=== PATIENT | female | born 2000 | race Caucasian/White ===

== ENCOUNTER 2023-11-25 12:11 | Outpatient (OUT) | payer OTHER, SELFPAY ==
--- NOTE | 2023-11-25 12:19 | XR_ITS ---
The [address] [address] Patient Name: TIMO BLACKBURN MRN: [id number] date: 2000 Sex: F Assigned Patient Location: RAD Current Patient Location: RAD Accession/Order Number: [id number] Exam Date: 11/25/2023 12:25 Report Date: 11/25/2023 12:38 At the request of: MARY GRACE NUÑEZ Procedure: XR chest 2V EXAM: XR chest 2V HISTORY: cough R05.9 for 2 weeks COMPARISON: None. TECHNIQUE: Upright PA and lateral chest x-ray FINDINGS: The heart is not enlarged and the vasculature is not distended. No acute infiltrate, effusion or pneumothorax is identified. The osseous structures are grossly intact. XR/XR chest 2V IMPRESSION: No acute infiltrate or evidence of cardiac decompensation. Direct comparison with a previous study would be helpful in determining the chronicity of these findings. Electronically authenticated by: SANDER CASANOVA Date: 11/25/2023 12:38
== END 2023-11-25 12:12 | disposition home or self-care (01) ==
LOC: RAD 12:14
PROVIDERS: PCP Family Medicine; Visit Provider Family Medicine
DX: R05.9 Cough, unspecified (principal)
CPT/HCPCS: 71046

== ENCOUNTER 2024-01-13 10:34 | Outpatient (RCR) | payer OTHER, SELFPAY | END 2024-01-29 13:30 | disposition home or self-care (01) | LOC: PT 10:34 | PROVIDERS: PCP Family Medicine; Visit Provider Family Medicine | DX: R42 Dizziness and giddiness (principal) | CPT/HCPCS: 97110; 97140; 97161 ==

== ENCOUNTER 2024-02-05 09:57 | Outpatient (REF) | payer OTHER, SELFPAY ==
--- OUTSIDE RECORDS SUMMARY | 2024-02-05 10:15 | XMS_ITS | CCD ---
Author Organization [facility] Care Team Providers Care Telephone Clerk Telegraph Office Name Role Phone SAVANNAH ., DR BRODY Attending Unavailable HOY ., DR BRODY Admitting Unavailable HOY ., DR BRODY Attending Unavailable HOY ., DR BRODY Admitting Unavailable HOY ., DR BRODY Consulting Unavailable Community, Outreach Attending Provider NO FAMILY, PHYSICIAN Primary Care Provider Unava ilable Community, Outreach Attending Unavailable Community, Outreach Admitting Unavailable NO FAMILY, PHYSICIAN Primary Care Unavailable Allergies Allergy Classification Reported Allergen(s) Allergy Type Date of Onset Reaction(s) Facility (2 sources) Amoxicillin; Translations: [amoxicillin] Drug Allergy 07-14-2021 [facility] (2 sources) cefdinir; Translations: [cefdinir] Drug Allergy 07-14-2021 [facility] Problems Problem Classification Problem Date Documented Da te Episodic/Chronic Other upper respiratory infections (4 sources) Acute pharyngitis, unspecified; Translations: [ACUTE PHARYNGITIS UNSPECIFIED] Onset: 01-07-2023 Episodic Results Test Name Value Interpretation Reference Range Facility Alanine aminotransferase [En zymatic activity/volume] in Serum or PlasmaOrdered By: OUTREACH COMMUNITY on 12-26-2023 ALT [Catalytic activity/Vol] 18 U/L 7-52 [facility] Albumin [Mass/volume] in Ser um or Plasma by Bromocresol green (BCG) dye binding methoOrdered By: OUTREACH COMMUNITY on 12-26-2023 Albumin BCG dye [Mass/Vol] 4.9 g/dL 3.5-5.7 [facility] Alkaline phosphatase [Enzyma tic activity/volume] in Serum or PlasmaOrdered By: OUTREACH COMMUNITY on 12-26-2023 ALP [Catalytic activity/Vol] 58 U/L 34-104 [facility] Aspartate aminotransferase [ Enzymatic activity/volume] in Serum or PlasmaOrdered By: OUTREACH COMMUNITY on 12-26-2023 AST [Catalytic activity/Vol] 14 U/L 13-39 [facility] Bilirubin.total [Mass/volume ] in Serum or PlasmaOrdered By: OUTREACH COMMUNITY on 12-26-2023 Bilirubin [Mass/Vol] 1.0 mg/dL 0.3-1.0 [facility] CBC Without Differentialon 0 12-26-2023 Erythrocyte distribution width (RBC) [Ratio] 14.0 % Normal 11.9-15.3 [facility] Comment on above: Performed By: #### O UTREACH CMP, CBCNOOUTREACH, OUTREACH LIPID, OUTREACH TSH #### [facility] [address] [place] [address] Hematocrit (Bld) [Volume fraction] 46.5 % High 34.0-46.4 [facility] Comment on above: Performed By: #### O UTREACH CMP, CBCNOOUTREACH, OUTREACH LIPID, OUTREACH TSH #### [facility] [address] [place] [address] Hemoglobin (Bld) [Mass/Vol] 16.0 g/dL High 11.8-15.4 [facility] Comment on above: Performed By: #### O UTREACH CMP, CBCNOOUTREACH, OUTREACH LIPID, OUTREACH TSH #### [facility] [address] [place] [address] MCH (RBC) [Entitic mass] 30.6 pg Normal 24.7-34.3 [facility] Comment on above: Performed By: #### O UTREACH CMP, CBCNOOUTREACH, OUTREACH LIPID, OUTREACH TSH #### [facility] [address] [place] [address] MCV (RBC) [Entitic vol] 89.1 fL Normal 80-100 [facility] Comment on above: Performed By: #### O UTREACH CMP, CBCNOOUTREACH, OUTREACH LIPID, OUTREACH TSH #### [facility] [address] [place] [address] Mean Corpuscular HGB Conc 34.4 g/dL Normal 32.0-35.0 [facility] Comment on above: Performed By: #### O UTREACH CMP, CBCNOOUTREACH, OUTREACH LIPID, OUTREACH TSH #### [facility] [address] [place] [address] Platelet mean volume (Bld) [Entitic vol] 8.6 fL Normal 6.3-10.7 [facility] Comment on above: Result Comment: PERF ORMED BY: [place] [address] PATHOLOGIST VEHICLE DYNAMICS ENGINEER JAMARCUS DOUGLAS M.D. Performed By: #### O UTREACH CMP, CBCNOOUTREACH, OUTREACH LIPID, OUTREACH TSH #### [address] Platelets (Bld) [#/Vol] 343 10*3/uL Normal 150-450 [facility] Comment on above: Performed By: #### O UTREACH CMP, CBCNOOUTREACH, OUTREACH LIPID, OUTREACH TSH #### [address] RBC (Bld) [#/Vol] 5.22 10*6/uL High 3.60-5.00 [facility] Comment on above: Performed By: #### O UTREACH CMP, CBCNOOUTREACH, OUTREACH LIPID, OUTREACH TSH #### [address] WBC (Bld) [#/Vol] 10.2 10*3/uL Normal 3.8-11.6 [facility] Comment on above: Performed By: #### O UTREACH CMP, CBCNOOUTREACH, OUTREACH LIPID, OUTREACH TSH #### [facility] [address] [place] [address] [place] CMP Outreachon 12-26-2023 Albumin [Mass/Vol] 4.9 g/dL Normal 3.5-5.7 [facility] Comment on above: Performed By: #### O UTREACH CMP, CBCNOOUTREACH, OUTREACH LIPID, OUTREACH TSH #### [address] ALP [Catalytic activity/Vol] 58 U/L Normal 34-104 [facility] Comment on above: Performed By: #### O UTREACH CMP, CBCNOOUTREACH, OUTREACH LIPID, OUTREACH TSH #### [facility] [address] [place] [address] [place] ALT [Catalytic activity/Vol] 18 U/L Normal 7-52 [facility] Comment on above: Performed By: #### O UTREACH CMP, CBCNOOUTREACH, OUTREACH LIPID, OUTREACH TSH #### [facility] [address] [place] [address] Anion gap [Moles/Vol] 12.8 mmol/L Normal 6.0-15.0 [facility] Comment on above: Performed By: #### O UTREACH CMP, CBCNOOUTREACH, OUTREACH LIPID, OUTREACH TSH #### [facility] [address] [place] [address] [place] AST [Catalytic activity/Vol] 14 U/L Normal 13-39 [facility] Comment on above: Performed By: #### O UTREACH CMP, CBCNOOUTREACH, OUTREACH LIPID, OUTREACH TSH #### [facility] [address] [place] [address] [place] Bilirubin [Mass/Vol] 1.0 mg/dL Normal 0.3-1.0 [facility] Comment on above: Performed By: #### O UTREACH CMP, CBCNOOUTREACH, OUTREACH LIPID, OUTREACH TSH #### [facility] [address] [place] [address] [place] Calcium [Mass/Vol] 10.3 mg/dL Normal 8.6-10.3 [facility] Comment on above: Performed By: #### O UTREACH CMP, CBCNOOUTREACH, OUTREACH LIPID, OUTREACH TSH #### [facility] [address] [place] [address] [place] Chloride [Moles/Vol] 105 mmol/L Normal 98-107 [facility] Comment on above: Performed By: #### O UTREACH CMP, CBCNOOUTREACH, OUTREACH LIPID, OUTREACH TSH #### [facility] [address] [place] [address] [place] CO2 [Moles/Vol] 28.0 mmol/L Normal 21.0-31.0 [facility] Comment on above: Performed By: #### O UTREACH CMP, CBCNOOUTREACH, OUTREACH LIPID, OUTREACH TSH #### [facility] [address] [place] [id number] [place] Creatinine [Mass/Vol] 0.73 mg/dL Normal 0.60-1.20 [facility] Comment on above: Performed By: #### O UTREACH CMP, CBCNOOUTREACH, OUTREACH LIPID, OUTREACH TSH #### [facility] [address] [place] [address] [place] GFR/1.73 sq M.predicted MDRD (S/P/Bld) [Vol rate/Area] mL/min/{1.73_m2} Normal [facility] Comment on above: Performed By: #### O UTREACH CMP, CBCNOOUTREACH, OUTREACH LIPID, OUTREACH TSH #### [place] [address] [place] Glucose [Mass/Vol] 94 mg/dL Normal 70-100 [facility] Comment on above: Result Comment: [facility] Glucose Reference Range is dependent on time and content of last meal. Glucose of more than 200 mg/dL in a nonstressed, ambulatory subject supports the diagnosis of Diabetes Mellitus. ADA recommended reference range Performed By: #### O UTREACH CMP, CBCNOOUTREACH, OUTREACH LIPID, OUTREACH TSH #### [place] [address] [place] Potassium [Moles/Vol] 3.8 mmol/L Normal 3.5-5.1 [facility] Comment on above: Performed By: #### O UTREACH CMP, CBCNOOUTREACH, OUTREACH LIPID, OUTREACH TSH #### [place] [id number] [place] Protein [Mass/Vol] 7.6 g/dL Normal 6.4-8.9 [facility] Comment on above: Performed By: #### O UTREACH CMP, CBCNOOUTREACH, OUTREACH LIPID, OUTREACH TSH #### [address] [address] [place] Sodium [Moles/Vol] 142 mmol/L Normal 136-145 [facility] Comment on above: Performed By: #### O CALI CMP, CBCNOOUTREACH, OUTREACH LIPID, OUTREACH TSH #### [facility] [address] [place] [phone] [place] Urea nitrogen [Mass/Vol] 7 mg/dL Normal 7-25 [facility] Comment on above: Performed By: #### O UTRDIRK CMP, CBCNOOUTREACH, OUTREACH LIPID, OUTREACH TSH #### [facility] [address] [place] [phone] [place] Calcium [Mass/volume] in Ser um or PlasmaOrdered By: OUTREACH COMMUNITY on 12-26-2023 Calcium [Mass/Vol] 10.3 mg/dL 8.6-10.3 [facility] Carbon dioxide, total [Moles /volume] in Serum or PlasmaOrdered By: OUTREACH COMMUNITY on 12-26-2023 CO2 [Moles/Vol] 28.0 mmol/L 21.0-31.0 [facility] Chloride [Moles/volume] in S pelon or PlasmaOrdered By: OUTREACH COMMUNITY on 12-26-2023 Chloride [Moles/Vol] 105 mmol/L 98-107 [facility] Cholesterol [Mass/volume] in Serum or PlasmaOrdered By: OUTREACH COMMUNITY on 12-26-2023 Cholesterol [Mass/Vol] 181 mg/dL 140-200 [facility] Comment on above: Chol less than 200 m g/dl low riskChol 201-239 mg/dl borderline riskChol 240 mg/dl and greater high risk Cholesterol in LDL Calc [Mas s/Vol]Ordered By: OUTREACH COMMUNITY on 12-26-2023 Cholesterol in LDL [Mass/Vol] 111 mg/dL 0-100 [facility] Comment on above: LDL ATP III CLASSIFI CATIONLDL less than 100 mg/dL OptimalLDL 100-129 mg/dL Near or above optimalLDL 130-159 mg/dL Borderline highLDL 160-189 mg/dL HighLDL greater than 189 mg/dL Very high Cholesterol in VLDL Calc [Ma ss/Vol]Ordered By: OUTREACH COMMUNITY on 12-26-2023 Cholesterol in VLDL [Mass/Vol] 19 mg/dL [facility] Creatinine [Mass/volume] in Serum or PlasmaOrdered By: [facility] on 12-26-2023 Creatinine [Mass/Vol] 0.73 mg/dL 0.60-1.20 [facility] Erythrocyte distribution wid th Auto (RBC) [Ratio]Ordered By: [facility] on 12-26-2023 Erythrocyte distribution width (RBC) [Ratio] 14.0 % 11.9-15.3 [facility] Glucose [Mass/volume] in Ser um or PlasmaOrdered By: [facility] on 12-26-2023 Glucose [Mass/Vol] 94 mg/dL 70-100 [facility] Comment on above: ADA recommended refe rence rangeRandom Glucose Reference Range is dependent on time and content of last meal. Glucose of more than 200 mg/dL in a nonstressed, ambulatory subject supports the diagnosis of Diabetes Mellitus. Hematocrit Auto (Bld) [Volum e fraction]Ordered By: [facility] on 12-26-2023 Hematocrit (Bld) [Volume fraction] 46.5 % 34.0-46.4 [facility] Hemoglobin [Mass/volume] in BloodOrdered By: [facility] on 12-26-2023 Hemoglobin (Bld) [Mass/Vol] 16.0 g/dL 11.8-15.4 [facility] Leukocytes [#/volume] correc caleb for nucleated erythrocytes in Blood by Automated counOrdered By: [facility] on 12-26-2023 WBC corrected for nucl RBC Auto (Bld) [#/Vol] 10.2 10*3/uL 3.8-11.6 [facility] Lipid Profile Outreach Cholesterol [Mass/Vol] 181 mg/dL Normal 140-200 [facility] Comment on above: Result Comment: Chol less than 200 mg/dl low risk Chol 201-239 mg/dl borderline risk Chol 240 mg/dl and greater high risk Performed By: #### O UTRHARRIS CMP, CBCNOOUTREACH, OUTREACH LIPID, OUTREACH TSH #### [facility] [address] Cholesterol in HDL [Mass/Vol] 51 mg/dL Normal 23-92 [facility] Comment on above: Result Comment: HDL CHOL ATP-III CLASSIFICATION Cardiovascular Risk HDL > or equal to 60 mg/dL LOW HDL < 40 mg/dL HIGH Performed By: #### O CALI HERNANDEZ, CBCNOOUTREACH, OUTREACH LIPID, OUTREACH TSH #### [facility] [address] Cholesterol.total/Choles terol in HDL [Mass ratio] 3.5 {ratio} Normal <5.0 [facility] Comment on above: Performed By: #### O CALI HERNANDEZ, CBCNOOUTREACH, OUTREACH LIPID, OUTREACH TSH #### [facility] [address] LDL Cholesterol,Calculated 111 mg/dL High 0-100 [facility] Comment on above: Result Comment: LDL ATP III CLASSIFICATION LDL less than 100 mg/dL Optimal LDL 100-129 mg/dL Near or above optimal LDL 130-159 mg/dL Borderline high LDL 160-189 mg/dL High LDL greater than 189 mg/dL Very high Performed By: #### O CALI HERNANDEZ, CBCNOOUTREACH, OUTREACH LIPID, OUTREACH TSH #### [facility] [address] Triglyceride w/Reflex 97 mg/dL Normal 0-149 [facility] Comment on above: Result Comment: TRIG ATP III CLASSIFICATION TRIG less than 150 mg/dL Normal TRIG 150-199 mg/dL Borderline high TRIG 200-500 mg/dL High TRIG greater than 500 mg/dL Very high Standard traceable to the Center for Disease Conrtrol and Prevention (CDC) test method. Performed By: #### O CALI HERNANDEZ, CBCNOOUTREACH, OUTREACH LIPID, OUTREACH TSH #### [facility] [address] VLDL CHOLESTEROL 19 mg/dL Normal [facility] Comment on above: Performed By: #### O CALI HERNANDEZ, CBCNOOUTREACH, OUTREACH LIPID, OUTREACH TSH #### [facility] [address] [place] [id number] [facility] MCH Auto (RBC) [Entitic mass ]Ordered By: OUTREACH [facility] on 12-26-2023 MCH (RBC) [Entitic mass] 30.6 pg 24.7-34.3 [facility] MCHC Auto (RBC) [Mass/Vol]Or dered By: OUTREACH [facility] on 12-26-2023 MCHC (RBC) [Mass/Vol] 34.4 g/dL 32.0-35.0 [facility] MCV Auto (RBC) [Entitic vol] Ordered By: OUTREACH [facility] on 12-26-2023 MCV (RBC) [Entitic vol] 89.1 fL 80-100 [facility] No Panel InformationOrdered By: OUTREACH [facility] on 12-26-2023 Estimated GFR (CKD-EPI) > 60.0 mL/Min [facility] Creatinine Clearance (Chem N/A [facility] Platelet mean volume Auto (B ld) [Entitic vol]Ordered By: [facility] on 12-26-2023 Platelet mean volume (Bld) [Entitic vol] 8.6 fL 6.3-10.7 [facility] Platelets Auto (Bld) [#/Vol] Ordered By: OUTREACH [facility] on 12-26-2023 Platelets (Bld) [#/Vol] 343 10*3/uL 150-450 [facility] Potassium [Moles/volume] in Serum or PlasmaOrdered By: OUTREACH [facility] on 12-26-2023 Potassium [Moles/Vol] 3.8 mmol/L 3.5-5.1 [facility] Protein [Mass/volume] in Ser um or PlasmaOrdered By: OUTREACH [facility] on 12-26-2023 Protein [Mass/Vol] 7.6 g/dL 6.4-8.9 [facility] RBC Auto (Bld) [#/Vol]Ordere d By: OUTREACH [facility] on 12-26-2023 RBC (Bld) [#/Vol] 5.22 10*6/uL 3.60-5.00 [facility] Serum or plasma anion gap de terminationOrdered By: OUTREACH [facility] on 12-26-2023 Anion gap [Moles/Vol] 12.8 mmol/L 6.0-15.0 [facility] Serum or plasma high density lipoprotein (HDL) cholesterol measurementOrdered By: OUTREACH [facility] on 12-26-2023 Cholesterol in HDL [Mass/Vol] 51 mg/dL 23-92 [facility] Comment on above: HDL CHOL ATP-III CLA SSIFICATION Cardiovascular RiskHDL > or equal to 60 mg/dL LOWHDL < 40 mg/dL HIGH Serum or plasma total choles terol/high density lipoprotein (HDL) cholesterol mass ratOrdered By: [facility] on 12-26-2023 Cholesterol.total/Choles terol in HDL [Mass ratio] 3.5 {ratio} <5.0 [facility] Sodium [Moles/volume] in Ser um or PlasmaOrdered By: OUTREACH COMMUNITY on 12-26-2023 Sodium [Moles/Vol] 142 mmol/L 136-145 [facility] Thyroid Stimulating Hormoneo n 12-26-2023 TSH Qn 1.05 m[IU]/L Normal 0.45-5.33 [facility] Comment on above: Result Comment: PERF ORMED BY: [facility] [address] [place] [address] PATHOLOGIST VEHICLE DYNAMICS ENGINEER JAMARCUS DOUGLAS M.D. Performed By: #### O [facility] CMP, CBCNOOUTREACH, [facility] LIPID, OUTREACH TSH #### [facility] [address] Thyrotropin [Units/volume] i n Serum or PlasmaOrdered By: [facility] on 12-26-2023 TSH Qn 1.05 m[IU]/L 0.45-5.33 [facility] Triglyceride [Mass/volume] i n Serum or PlasmaOrdered By: [facility] on 12-26-2023 Triglyceride [Mass/Vol] 97 mg/dL 0-149 [facility] Comment on above: TRIG ATP III CLASSIF ICATIONTRIG less than 150 mg/dL NormalTRIG 150-199 mg/dL Borderline highTRIG 200-500 mg/dL High TRIG greater than 500 mg/dL Very highStandard traceable to the Center for Disease Conrtrol and Prevention (CDC) test method. Urea nitrogen [Mass/volume] in Serum or PlasmaOrdered By: OUTREACH COMMUNITY on 12-26-2023 Urea nitrogen [Mass/Vol] 7 mg/dL 7-25 [facility] GROUP A STREP CULTUREon 03-0 S. pyogenes Ag Ql (Unsp spec) Culture Observations: NEGATIVE FOR GROUP A STREPTOCOCCUS. Normal [facility] Comment on above: Performed By: #### G RASTCX, SSCRN #### [facility] [address] [place], [place] [address] Dr. Ramses Carpenter STREPT SCREENon 01-07-2023 STREP SCREEN A Negative Normal NEGATIVE [facility] Comment on above: Performed By: #### G RASTCX, SSCRN #### [facility] [address] [place], [place] [address] Dr. Ramses Carpenter Encounters Encounter Date Encounter Type Care Provider Facility Start: 12-26-2023 End: 12-26-2023 ambulatory Outreach Community Facility:[facility] Start: 12-26-2023 End: 12-26-2023 ambulatory PHYSICIAN NO [facility] Work Phone: Start: 12-26-2023 End: 12-26-2023 Departed Referred PHYSICIAN NO [facility] Out[facility] Work Phone: Start: 01-07-2023 End: 01-07-[address] MARY GRACE NUÑEZ . Facility: Start: 06-15-[address] MARY GRACE NUÑEZ . Facili ty:[facility]1 Payers Date Payer Category Payer Unknown [id number] 2000 Unknown [id number] 1958 Self-pay 1958 Unknown [id number] Unknown [id number] Social History Date Type Detail Facility Start: 07-14-2021 Tobacco smoking stat us NHIS Never smoked tobacco (finding) [facility] Start: 2000 Sex Assigned At Female F [facility] Evaluation note Note Date & Type Note Facility Evaluation note No assessment information availa ble [facility] Work Phone: Summary Purpose Family History No Family History Records FoundNo Family History Records Found Advance Directives No Advanced Directives Records FoundNo Advanced Directives Records Found Chief Complaint and Reason for Visit Chief Complaint complete Additional Source Comments INFORMATION SOURCE (unrecogn ized section and content) DATE CREATED AUTHOR 01/13/2023 [facility] DATE CREATED AUTHOR AUTHOR'S JAZZ ROLLE 12/27/2023 [facility] Care Teams (unrecognized sec tion and content) Team Status: Active Member Role Status Dates PHYSICIAN NO FAMILY Primary Care Provider Active Team Status: Inactive Member Role Status Dates Outreach Community Attending Provider Active Sta rt: December 26, 2023 End: December 26, 2023 PHYSICIAN NO FAMILY Primary Care Provider Active Start: December 26, 2023 End: December 26, 2023 Goals (unrecognized section and content) Goals may be documented in a n alternate section FOR RECORDS PERTAINING TO PATIENTS WHO ARE OR HAVE BEEN ENROLLED IN A CHEMICAL DEPENDENCY/SUBSTANCEABUSE PROGRAM, SOME INFORMATION MAY BE OMITTED. This clinical summary was aggregated from multiple sources. Caution should be exercised in using it in the provision of clinical care. This summary normalizes information from multiple sources, and as a consequence, information in this document may materially change the coding, format and clinical context of patient data. In addition, data may be omitted in some cases. CLINICAL DECISIONS SHOULD BE BASED ON THE PRIMARY CLINICAL RECORDS. [employer] [facility]. provides no warranty or guarantee of the accuracy or completeness of information in this document.
[2024-02-05 12:09] LABS: Influenza Virus A Antigen Negative; Influenza Virus B Antigen Negative; Internal Control Within Normal Limits; SARS-CoV-2 Ag NEGATIVE (NEGATIVE)
[2024-02-05 15:51] LABS: SARS-CoV-2 NAA NOT DETECTED (NOT DETECTE)
== END 2024-02-05 09:58 | disposition home or self-care (01) ==
LOC: LAB 09:57
PROVIDERS: PCP Family Medicine; Visit Provider Family Medicine
DX: J01.90 Acute sinusitis, unspecified (principal)
CPT/HCPCS: 87635; 87804; 87811